=== PATIENT | female | born 1940 | race Caucasian/White ===

== ENCOUNTER → 2017-02-07 | Outpatient (CLI) | payer MEDICARE, OTHER ==
[~2017-02-07] MED LIST: ASPIR-LOW81 MG PO; ASPIRIN E.C. 8181 MG PO; CALCIUM1 CAP PO; DIOVAN HCT 12.51 TAB PO; DIOVAN HCT 25 M1 TA1 PO; DIOVAN PO; DIOVAN160 M1 PO; FISH OIL500 MG PO; LOPRESSOR 225 MG/TAB PO; LOPRESSOR50 MG PO; NORCO 325 MG-51 TAB PO; PHENERGAN 25 TA25 MG PO
== END ==
LOC: MC.RAD 09:11
DX: Z12.31 Encounter for screening mammogram for malignant neoplasm of breast (principal)

== ENCOUNTER → 2018-12-31 | Outpatient (CLI) | payer MEDICARE, OTHER | LOC: COL.RAD 14:00 | DX: G30.1 Alzheimer's disease with late onset (principal) ==

== ENCOUNTER 2024-03-16 06:12 | Emergency (ER) | payer MEDICARE, OTHER ==
[~2024-03-16] VITALS: Ht 165.1 cm; Wt 70.0 kg
[2024-03-16 06:15] VITALS: TEMP 98.5
[2024-03-16 06:47] LABS: BASO % 0.1 % (0.0-2.0); EOS % 0.4 % (0.0-4.0); GRAN # 7.9 K/mm3 (1.4-6.5); GRAN % 80.2 % (42.2-75.2); HEMATOCRIT 40.7 % (37.0-47.0); HEMOGLOBIN 13.1 g/dl (12.5-16.0); LYMPH % 10.5 % (20.0-51.0); MEAN CELL VOLUME 90 fl (80.0-100.0); MEAN CORPUSCULAR HEMOGLOBIN 29 pg (27-31); MEAN CORPUSCULAR HGB CONC 32 g/dl (33.0-37.0); MEAN PLATELET VOLUME 9.1 fl (7.4-10.4); MONO # 0.8 K/mm3 (0.1-0.6); MONO % 8.5 % (1.7-9.3); PLATELET COUNT 181 K/mm3 (130-400); RED BLOOD COUNT 4.53 M/mm3 (4.10-5.30); REDCELL DISTRIBUTION WIDTH-CV 13.1 % (11.5-14.5)
[2024-03-16 07:10] LABS: ALANINE AMINOTRANSFERASE 11 U/L (0-55); ALBUMIN 3.6 g/dL (3.4-4.8); ALKALINE PHOSPHATASE 91 U/L (40-150); ANION GAP 10 mmol/L (7-16); AST,SGOT 25 U/L (5-34); BILIRUBIN,TOTAL 0.4 mg/dL (0.2-1.2); BLOOD UREA NITROGEN 24 mg/dL (10-20); CALCIUM 9.7 mg/dL (8.4-10.2); CHLORIDE 106 mEq/L (98-107); CREATINE KINASE 72 U/L (29-168); GLUCOSE 133 mg/dL (70-99); POTASSIUM 4.5 mEq/L (3.5-4.5); SODIUM 141 mEq/L (136-145)
[2024-03-16 07:19] LABS: TROPONIN-I < 0.010 ng/mL (0.00-0.033)
[2024-03-16 08:05] LABS: PROTHROMBIN TIME 11.3 SECONDS (9.7-12.8)
[2024-03-16 08:07] LABS: PARTIAL THROMBOPLASTIN TIME 27.8 SECONDS (26.0-37.0)
[2024-03-16 10:00] VITALS: BP 114/55; PULSE 70
== END 2024-03-16 10:00 | disposition home or self-care (01) ==
LOC: COL.ER 06:12
PROVIDERS: Emergency Medicine
DX: S01.112A Laceration without foreign body of left eyelid and periocular area, initial encounter (principal); S51.812A Laceration without foreign body of left forearm, initial encounter; S05.12XA Contusion of eyeball and orbital tissues, left eye, initial encounter; Z23 Encounter for immunization; W19.XXXA Unspecified fall, initial encounter